=== PATIENT | male | born 1980 | race African-American/Black ===

== ENCOUNTER 2021-09-13 10:38 | Emergency (ER) | payer BC, SELFPAY ==
--- NOTE | ~2021-09-13 | XR_ITS ---
EXAMINATION: XR FOOT, LEFT CLINICAL INFORMATION: Pain and swelling. COMPARISON: None TECHNIQUE: AP, lateral, and oblique views of the left foot. FINDINGS: There is no visible acute fracture, dislocation or subluxation seen. No bony erosive changes. The ankle mortise and subtalar joints are normal. The soft tissues are normal. XR/XR foot LT min 3V IMPRESSION: Unremarkable left foot exam.
[2021-09-13 10:41] VITALS: BP 129/81; PULSE 114; RESP 20; TEMP 36.7; O2SAT 98; BMI 17.8
[2021-09-13 11:31] VITALS: BP 120/63; PULSE 69; RESP 16; O2SAT 98
--- NOTE | 2021-09-13 11:34 | ED.LOWEXIN ---
HPI - Extremity Injury (Lower) General Chief Complaint: Extremity Injury, Lower Stated Complaint: Swollen l foot Time Seen by Provider: 09/13/21 11:12 Source: patient Mode of arrival: ambulatory Limitations: no limitations History of Present Illness HPI Narrative: 41-year-old male with no medical history here with reports of redness, swelling and pain with a wound to the left foot since last Friday. Patient tells me initially he had some itching in between the toes and then noticed several days later a wound has been increasingly getting more red and swollen and painful. He tells me on Friday he had a temperature of 100.8 degrees max for approximately 24 hours and this has since resolved. No additional episodes of fever. No vomiting, diarrhea, upper leg pain, sensation changes. Patient denies any history of diabetes. No history of IV drug abuse. No reports of injury or trauma Related Data Previous Rx's Medication Instructions Recorded clotrimazole 1 % topical cream 1 appl TOPICAL BID 28 Days #45 g 09/13/21 doxycycline monohydrate 100 mg 100 mg PO BID #20 tab 09/13/21 tablet fluconazole 150 mg tablet 150 mg PO Q3D #2 tab 09/13/21 (Diflucan) mupirocin 2 % topical ointment 1 appl TOPICAL BID #22 g 09/13/21 Allergies Allergy/AdvReac Type Severity Reaction Status Date / Time No Known Allergies Allergy Verified 09/13/21 10:44 Review of Systems Review of Systems: Yes all other systems are reviewed and are negative Constitutional: Constitutional: Reports no additional constitutional complaints, Denies body ache(s), Denies chills, Denies fever(s), Denies headache(s) and Denies weakness Eyes: Eyes: Reports no additional eye complaints and Denies change in vision ENT: Reports system reviewed and no additional complaints, except as documented, Denies dizziness, Denies headache(s), Denies nasal congestion, Denies nasal discharge and Denies neck pain Cardiovascular: Cardiovascular: Reports no additional cardiovascular complaints, Denies chest pain, Denies leg edema and Denies dyspnea Respiratory: Respiratory: Reports no additional respiratory complaints, Denies cough and Denies dyspnea Gastrointestinal: Gastrointestinal: Reports no additional gastrointestinal complaints, Denies abdominal pain, Denies diarrhea, Denies nausea and Denies vomiting Genitourinary: Genitourinary: Denies urinary incontinence Musculoskeletal: Musculoskeletal: Reports no additional musculoskeletal complaints, Denies back pain, Denies arthralgias, Denies joint swelling, Denies neck pain, Denies numbness and Denies tingling Integumentary/Breasts: Skin/Breast: Reports system reviewed and no additional complaints, except as docu, Reports swelling, Reports erythema and Denies rash Neurologic: Reports system reviewed and no additional complaints, except as documented, Denies Abnormal speech present, Denies dizziness, Denies headache(s), Denies numbness, Denies tingling and Denies weakness PMFSH Past Medical History Attestation statement: The following information was validated with the patient. Source: old records reviewed and nursing notes reviewed Medical History No known health problems Social History Social History Advance Directives: No Advance Directives Information Provided: No Physical Exam Vital Signs: Vital Signs: Last Vital Signs Temp 98.0 F 09/13/21 10:41 Pulse 69 09/13/21 11:31 Resp 16 09/13/21 11:31 BP 120/63 09/13/21 11:31 Pulse Ox 98 09/13/21 11:31 BMI result Body Mass Index 17.8 Const: General: cooperative, healthy appearing, comfortable and no acute distress Orientation/consciousness: patient oriented x3 Limitations: no limitations HENMT: Head: Yes normal to inspection Ears: hearing grossly normal bilaterally General nose exam: Normal external nose present Face and sinus: Yes normal facial exam Mouth: Normal oral and palatal mucosa present Throat: Yes posterior oropharynx normal Eyes: General: appearance normal, both eyes and all related structures Pupils: Equal, round and reactive pupils present Neck: Neck: Yes normal visual inspection Chest: Chest palpation & inspection: normal inspection of the chest Resp: Effort & Inspection: normal respiratory effort Auscultation: clear to auscultation bilaterally Cardio: Rate: regular rate Rhythm: regular rhythm Peripheral pulses: Peripheral pulses 2+ throughout GI: Inspection: Yes normal to inspection Palpation (GI): Soft to palpation and nontender Auscultation: normal bowel sounds Back/Spine/Pelvis: Thoracic/Lumbar Spine: thoracic and lumbar spine normal to inspection Skin: General skin exam: no rashes or lesions noted Neuro: General: patient oriented x3, no focal motor deficits and normal sensation to monofilament Cranial nerves: Yes Equal, round and reactive pupils present Cognition (Neuro): normal cognition Speech: No Abnormal speech present Gait exam (Neuro): Normal gait present Motor exam (neuro): 5/5 motor strength present throughout Extrem: Other: In between each of the digits there are fissures and evidence of tinea pedis. There is tenderness over the dorsal aspect of the foot but no fluctuance or abscess. Palpable DP and PT pulses. No swelling or redness over the sole of the foot. No pain up over the ankle. General: Yes normal to inspection Course Course Course Narrative: 41-year-old male here with reports of left foot swelling, redness, pain for about 8-9 days. On exam the patient has tinea pedis with a superimposed cellulitis. No systemic symptoms concerning for infection. Patient is nontoxic appearing. He is afebrile. There is no obvious fluctuance or abscess. X-rays are negative for any signs of osteomyelitis. Will treat with course of antibiotics, both oral and topical antifungals. Reviewed worrisome signs and symptoms of when to return to the emergency department. Comfortable discharge home. MDM - Extremity Injury (Lower) Medical Records Attestation: I reviewed the patient's medical records. Lab Data Attestation: I reviewed the patient's lab results. Imaging Data foot xray: Attestation: I personally reviewed and interpreted this imaging study as follows: Radiologist's impression: [address] [address] XRay Report Signed Patient: David Brooks MR#: [id number] : 1980 Acct:[id number] Age/Sex: 41 / M ADM Date: 09/13/21 Loc: HO.ED Attending Dr: Ordering Physician: Cleo Rodríguez DO Date of Service: 09/13/21 Procedure(s): XR foot LT min 3V Accession Number(s): [id number] cc: Cleo Rodríguez DO~ EXAMINATION: XR FOOT, LEFT CLINICAL INFORMATION: Pain and swelling.? COMPARISON: None? TECHNIQUE: AP, lateral, and oblique views of the left foot. FINDINGS: There is no visible acute fracture, dislocation or subluxation seen. No bony erosive changes. The ankle mortise and subtalar joints are normal. The soft tissues are normal.? XR/XR foot LT min 3V IMPRESSION: Unremarkable left foot exam. Discharge Plan Discharge Clinical Impression: Cellulitis, Tinea pedis Patient Disposition: Home, Self-Care Instructions: Athlete's Foot (ED), Cellulitis (DC) Additional Instructions: The antibiotics until they are done. Monitor the site and return for increasing redness, swelling or fever greater than 100.4 Mixed both topical creams together and apply to the site Warm soaks in Epsom salts 2-3 times daily. After removal of the foot pat it dry with a towel will expecially in between the toes Prescriptions: New doxycycline monohydrate 100 mg tablet 100 mg PO BID Qty: 20 0RF fluconazole [Diflucan] 150 mg tablet 150 mg PO Q3D Qty: 2 0RF Rx Instructions: may repeat second dose 72 hrs after first dose if symptoms persist clotrimazole 1 % cream 1 appl topical BID 28 Days Qty: 45 0RF mupirocin 2 % ointment 1 appl topical BID Qty: 22 0RF Referrals: Physician,None [Primary Care Provider] - 2 days Stand Alone Forms: Work/School Release Interventions: ED Discharge Assessment Last Done: 09/13/21 12:47 Discharge Date/Time: 09/13/21 12:50
== END 2021-09-13 12:50 | disposition home or self-care (01) ==
LOC: HO.ED 11:51
PROVIDERS: Emergency Provider Emergency Medicine
DX: L03.116 Cellulitis of left lower limb (principal); B35.3 Tinea pedis; B96.4 Proteus (mirabilis) (morganii) as the cause of diseases classified elsewhere
CPT/HCPCS: 73630; 87071; 87077; 87186; 87205; 99283; 99284